=== PATIENT | male | born 1960 ===

== ENCOUNTER 2021-04-12 16:26 | Emergency (ER) | payer SELFPAY ==
[2021-04-12] MEDS ORDERED: FAMOTIDINE 20 MG/2 ML INJ IV ONE (17:33)
[2021-04-12] MEDS ORDERED: KETOROLAC 30 MG/1 ML INJ IV ONE (17:33)
--- NOTE | 2021-04-12 18:03 | Emergency Department Report ---
ED Dizziness HPI - General Chief Complaint: Dizziness Stated Complaint: DIZZINESS Time Seen by Provider: 04/12/21 17:32 Source: patient Mode of arrival: Ambulatory Limitations: No Limitations - History of Present Illness Initial Comments: Patient is a 60-year-old male with a past medical history of a recent diagnosis of colon cancer who is presenting with dizziness. Patient states for the last 2 days he has felt lightheaded with standing. Occasional palpitations as well. Has not noticed any dark-colored stool or stool but he has had anemia in the past secondary to his GI bleed. Patient denies any chest pain or shortness of breath. Patient has some generalized abdominal discomfort which is at its baseline. Patient had a scan done today to see if his cancer has spread. - Related Data Previous Rx's Medication Instructions Recorded Last Taken Type Ferrous Sulfate [Ferrous Sulfate 324 mg PO TID #30 tablet. 04/12/21 Unknown Rx 324 MG] Allergies Allergy/AdvReac Type Severity Reaction Status Date / Time No Known Allergies Allergy Unverified 04/12/21 17:31 ED Review of Systems ROS: Stated complaint: DIZZINESS Other details as noted in HPI Comment: All other systems reviewed and negative ED Past Medical Hx - Medications Home Medications: Home Medications Medication Instructions Recorded Confirmed Last Taken Type Ferrous Sulfate [Ferrous Sulfate 324 mg PO TID #30 tablet. 04/12/21 Unknown Rx 324 MG] ED Physical Exam - General Limitations: No Limitations General appearance: alert, in no apparent distress - Head Head exam: Present: atraumatic, normocephalic - Eye Eye exam: Present: normal appearance, PERRL, EOMI - ENT ENT exam: Present: mucous membranes moist - Neck Neck exam: Present: normal inspection - Respiratory Respiratory exam: Present: normal lung sounds bilaterally. Absent: respiratory distress, wheezes, rales, rhonchi - Cardiovascular Cardiovascular Exam: Present: regular rate, normal rhythm, normal heart sounds. Absent: systolic murmur, diastolic murmur, rubs, gallop - GI/Abdominal GI/Abdominal exam: Present: soft, normal bowel sounds. Absent: distended, tenderness, guarding, rebound - Rectal Rectal exam: Present: deferred - Extremities Exam Extremities exam: Present: normal inspection - Back Exam Back exam: Present: normal inspection - Neurological Exam Neurological exam: Present: alert, oriented X3 - Psychiatric Psychiatric exam: Present: normal affect, normal mood - Skin Skin exam: Present: warm, dry, intact, normal color. Absent: rash ED Course Vital Signs 04/12/21 17:21 Temperature 98.2 F Pulse Rate 79 Respiratory 18 Rate Blood Pressure 132/52 O2 Sat by Pulse 99 Oximetry ED Medical Decision Making - Lab Data Result diagrams: 04/12/21 17:53 04/12/21 17:53 Lab Results 04/12/21 04/12/21 04/12/21 Range/Units 17:53 17:53 17:53 WBC 4.5 (4.5-11.0) K/mm3 RBC 3.83 (3.65-5.03) M/mm3 Hgb 7.8 L (11.8-15.2) gm/dl Hct 26.3 L (35.5-45.6) % MCV 69 L (84-94) fl MCH 21 L (28-32) pg MCHC 30 L (32-34) % RDW 21.6 H (13.2-15.2) % Plt Count 344 (140-440) K/mm3 Lymph % (Auto) 29.7 (13.4-35.0) % [place] % (Auto) 5.5 (0.0-7.3) % Eos % (Auto) 7.2 H (0.0-4.3) % Baso % (Auto) 0.8 (0.0-1.8) % Lymph # (Auto) 1.3 (1.2-5.4) K/mm3 [place] # (Auto) 0.2 (0.0-0.8) K/mm3 Eos # (Auto) 0.3 (0.0-0.4) K/mm3 Baso # (Auto) 0.0 (0.0-0.1) K/mm3 Seg Neutrophils % 56.8 (40.0-70.0) % Seg Neutrophils # 2.5 (1.8-7.7) K/mm3 PT 14.2 (12.2-14.9) Sec. INR 0.99 (0.87-1.13) APTT 29.6 (24.2-36.6) Sec. Sodium 138 (137-145) mmol/L Potassium 3.9 (3.6-5.0) mmol/L Chloride 103.9 (98-107) mmol/L Carbon Dioxide 20 L (22-30) mmol/L Anion Gap 18 mmol/L BUN 12 (9-20) mg/dL Creatinine 0.9 (0.8-1.3) mg/dL Estimated GFR > 60 ml/min BUN/Creatinine Ratio 13 % Glucose 101 H (75-100) mg/dL Calcium 8.5 (8.4-10.2) mg/dL Total Bilirubin 0.20 (0.1-1.2) mg/dL AST 13 (5-40) units/L ALT 12 (7-56) units/L Alkaline Phosphatase 88 (35-129) units/L Total Protein 6.4 (6.3-8.2) g/dL Albumin 3.8 L (3.9-5) g/dL Albumin/Globulin Ratio 1.5 % Blood Type Antibody Screen 04/12/21 Range/Units 17:53 WBC (4.5-11.0) K/mm3 RBC (3.65-5.03) M/mm3 Hgb (11.8-15.2) gm/dl Hct (35.5-45.6) % MCV (84-94) fl MCH (28-32) pg MCHC (32-34) % RDW (13.2-15.2) % Plt Count (140-440) K/mm3 Lymph % (Auto) (13.4-35.0) % [place] % (Auto) (0.0-7.3) % Eos % (Auto) (0.0-4.3) % Baso % (Auto) (0.0-1.8) % Lymph # (Auto) (1.2-5.4) K/mm3 [place] # (Auto) (0.0-0.8) K/mm3 Eos # (Auto) (0.0-0.4) K/mm3 Baso # (Auto) (0.0-0.1) K/mm3 Seg Neutrophils % (40.0-70.0) % Seg Neutrophils # (1.8-7.7) K/mm3 PT (12.2-14.9) Sec. INR (0.87-1.13) APTT (24.2-36.6) Sec. Sodium (137-145) mmol/L Potassium (3.6-5.0) mmol/L Chloride (98-107) mmol/L Carbon Dioxide (22-30) mmol/L Anion Gap mmol/L BUN (9-20) mg/dL Creatinine (0.8-1.3) mg/dL Estimated GFR ml/min BUN/Creatinine Ratio % Glucose (75-100) mg/dL Calcium (8.4-10.2) mg/dL Total Bilirubin (0.1-1.2) mg/dL AST (5-40) units/L ALT (7-56) units/L Alkaline Phosphatase (35-129) units/L Total Protein (6.3-8.2) g/dL Albumin (3.9-5) g/dL Albumin/Globulin Ratio % Blood Type B POSITIVE Antibody Screen Negative - Medical Decision Making Patient is a 60-year-old gentleman who has a history of recent diagnosis of colon cancer. Patient coming in with some mild dizziness. Hemodynamically the patient is stable with normal vital signs. Hemoglobin was 7.8. No melena. We will start the patient on iron the patient been given precautions of when to return back to the emergency department. Patient follow- up with primary care and his surgeon Critical care attestation.: If time is entered above; I have spent that time in minutes in the direct care of this critically ill patient, excluding procedure time. ED Disposition Clinical Impression: Anemia Qualifiers: Anemia type: iron deficiency Iron deficiency anemia type: chronic blood loss Qualified Code(s): D50.0 - Iron deficiency anemia secondary to blood loss (chronic) Colon cancer Qualifiers: Colon location: unspecified part of colon Qualified Code(s): C18.9 - Malignant neoplasm of colon, unspecified Disposition: 01 HOME / SELF CARE / HOMELESS Is pt being admited?: No Does the pt Need Aspirin: No Condition: Stable Instructions: Colorectal Cancer, Preventing Iron Deficiency Anemia, Adult Prescriptions: Ferrous Sulfate [Ferrous Sulfate 324 MG] 324 mg PO TID #30 tablet. Time of Disposition: 19:55 Print Language: YORUBA
[2021-04-12 18:11] LABS: Basophils % (Auto) 0.8 % (0.0-1.8); Eosinophils # (Auto) 0.3 K/mm3 (0.0-0.4); Eosinophils % (Auto) 7.2 % (0.0-4.3); Hematocrit 26.3 % (35.5-45.6); Hemoglobin 7.8 gm/dl (11.8-15.2); Lymphocytes # (Auto) 1.3 K/mm3 (1.2-5.4); Lymphocytes % (Auto) 29.7 % (13.4-35.0); Mean Corpuscular HGB Conc 30 % (32-34); Monocytes # (Auto) 0.2 K/mm3 (0.0-0.8); Monocytes % (Auto) 5.5 % (0.0-7.3); Platelet Count 344 K/mm3 (140-440); Red Blood Count 3.83 M/mm3 (3.65-5.03)
[2021-04-12 18:12] LABS: Mean Corpuscular Volume 69 fl (84-94); Red Cell Distribution Width 21.6 % (13.2-15.2)
[2021-04-12 18:36] LABS: Alanine Aminotransferase 12 units/L (7-56); Albumin 3.8 g/dL (3.9-5); BUN/Creatinine Ratio 13; Blood Urea Nitrogen 12 mg/dL (9-20); Calcium 8.5 mg/dL (8.4-10.2); Hemolysis Index 3
[2021-04-12 18:39] LABS: INR 0.99 (0.87-1.13)
[2021-04-12 18:40] LABS: Partial Thromboplastin Time 29.6 Sec. (24.2-36.6)
[2021-04-12 20:36] VITALS: BP 122/65
== END 2021-04-12 21:10 | disposition home or self-care (01) ==
LOC: ED 16:26
DX: D50.0 Iron deficiency anemia secondary to blood loss (chronic) (principal); C18.9 Malignant neoplasm of colon, unspecified
CPT/HCPCS: 36415; 80053; 85025; 85610; 85730; 86850; 86900; 86901; 96374; 96375; 99283; J1885; J3490

== ENCOUNTER 2021-05-09 09:48 | Emergency (ER) | payer SELFPAY ==
--- NOTE | 2021-05-09 10:58 | Event Note ---
ED Screening Note ED Screening Note: Patient presents for generalized weakness, fatigue, and feeling bad since last week He states he had some blood work performed and then has been feeling bad since then States he also has shortness of breath and palpitations He states his stools have been darker but he is on iron supplement He states occasionally has stomach discomfort He has a new diagnosis of stomach cancer and is seeing Dr. Garcia This initial assessment/diagnostic orders/clinical plan/treatment(s) is/are subject to change based on patients health status, clinical progression and re- assessment by fellow clinical providers in the ED. Further treatment and workup at subsequent clinical providers discretion. Patient/guardian urged not to elope from the ED as their condition may be serious if not clinically assessed and managed. Initial orders include: labs, ekg, xr
--- NOTE | 2021-05-09 11:24 | XRay Report ---
CHEST 2 VIEWS INDICATION: palpitations, sob. COMPARISON: none FINDINGS: Support devices: None. Heart: Within normal limits. Lungs/pleura: No acute air space or interstitial disease. No pneumothorax. Additional findings: None. IMPRESSION: No acute findings. Signer Name: Catrachito Sevilla Jr, MD Signed: 05/09/2021 11:20 AM Workstation Name: [id number]
--- NOTE | 2021-05-09 11:56 | Emergency Department Report ---
ED General Adult HPI - General Chief complaint: GI Bleed Stated complaint: BLACK STOOL,CHEST PAIN,BODY PAIN Time Seen by Provider: 05/09/21 11:41 Source: patient Mode of arrival: Ambulatory Limitations: Language Barrier - History of Present Illness Initial comments: Patient is 60 years old male with a recent diagnosis of stomach cancer according to his daughter. She stated that he was diagnosed with stomach cancer in [place] and he just recently moved here. She stated that he has been complaining of generalized weakness for the last few days. She stated that they follow-up with Dr. Garcia, oncologist and she referred him to [facility] to start his treatment plan. She stated that they are planning to go today however he became weak. He denied any hematemesis or hematochezia. She stated that his stool color is a little bit dark but since this is started when he start taking iron. She stated that there is no change in the stool color recently. Patient was seen here end of March and had a hemoglobin of 7.8 at that time. - Related Data Previous Rx's Medication Instructions Recorded Last Taken Type Ferrous Sulfate [Ferrous Sulfate 324 mg PO TID #30 tablet. 04/12/21 Unknown Rx 324 MG] Allergies Allergy/AdvReac Type Severity Reaction Status Date / Time No Known Allergies Allergy Unverified 04/12/21 17:31 ED Review of Systems ROS: Stated complaint: BLACK STOOL,CHEST PAIN,BODY PAIN Other details as noted in HPI Comment: All other systems reviewed and negative Constitutional: denies: chills, fever Respiratory: denies: cough, shortness of breath, SOB with exertion Cardiovascular: denies: chest pain, palpitations Gastrointestinal: denies: abdominal pain, nausea, vomiting Musculoskeletal: denies: back pain Neurological: weakness. denies: headache, numbness, paresthesias, confusion, abnormal gait ED Past Medical Hx - Past Medical History Previous Medical History?: Yes Additional medical history: stomach cancer, [facility] - Surgical History Past Surgical History?: No - Medications Home Medications: Home Medications Medication Instructions Recorded Confirmed Last Taken Type Ferrous Sulfate [Ferrous Sulfate 324 mg PO TID #30 tablet. 04/12/21 Unknown Rx 324 MG] ED Physical Exam - General Limitations: Language Barrier General appearance: alert, in no apparent distress - Head Head exam: Present: normocephalic - Eye Eye exam: Present: normal appearance - ENT ENT exam: Present: normal exam, normal orophraynx, mucous membranes moist - Neck Neck exam: Present: normal inspection, full ROM. Absent: tenderness, meningismus - Respiratory Respiratory exam: Present: normal lung sounds bilaterally - Cardiovascular Cardiovascular Exam: Present: regular rate, normal rhythm, normal heart sounds - GI/Abdominal GI/Abdominal exam: Present: soft, normal bowel sounds. Absent: distended, tenderness, guarding, rebound, rigid, organomegaly, mass, bruit, pulsatile mass, hernia - Extremities Exam Extremities exam: Present: normal inspection, full ROM, normal capillary refill. Absent: tenderness - Back Exam Back exam: Present: normal inspection, full ROM. Absent: CVA tenderness (R), CVA tenderness (L) - Neurological Exam Neurological exam: Present: alert, oriented X3, CN II-XII intact, normal gait, reflexes normal. Absent: motor sensory deficit - Psychiatric Psychiatric exam: Present: normal mood - Skin Skin exam: Present: warm, intact, normal color ED Course Vital Signs 05/09/21 10:45 Temperature 98.1 F Pulse Rate 87 Respiratory 16 Rate Blood Pressure 114/66 [Left] O2 Sat by Pulse 100 Oximetry ED Medical Decision Making - Lab Data Result diagrams: 05/09/21 11:42 05/09/21 11:42 - Medical Decision Making Patient is 60 years old male with a recent diagnosis of stomach cancer according to his daughter. She stated that he was diagnosed with stomach cancer in [place] and he just recently moved here. She stated that he has been complaining of generalized weakness for the last few days. She stated that they follow-up with Dr. Garcia, oncologist and she referred him to [facility] to start his treatment plan. She stated that they are planning to go today however he became weak. He denied any hematemesis or hematochezia. She stated that his stool color is a little bit dark but since this is started when he start taking iron. She stated that there is no change in the stool color recently. Patient was seen here end of March and had a hemoglobin of 7.8 at that time. Patient remained stable in the ER with stable vital sign. Hemoglobin is 6.9 a drop from 7.91-month ago. Patient does not have any active bleeding now. Patient received 1 unit of PRBC. Patient advised to follow-up with Dr. Garcia and [facility] as scheduled. Patient advised to return to the ER if he develop any new symptoms. Critical care attestation.: If time is entered above; I have spent that time in minutes in the direct care of this critically ill patient, excluding procedure time. ED Disposition Clinical Impression: Acute anemia, History of stomach cancer Disposition: HOME / SELF CARE / HOMELESS Is pt being admited?: No Condition: Stable Instructions: Blood Transfusion, Adult, Care After, [id number] Referrals: PRIMARY CARE, [Primary Care Provider] - 3-5 Days Forms: Accompanied Note
[2021-05-09 12:08] LABS: Basophils % (Auto) 0.7 % (0.0-1.8); Eosinophils # (Auto) 0.4 K/mm3 (0.0-0.4); Eosinophils % (Auto) 7.8 % (0.0-4.3); Hematocrit 22.7 % (35.5-45.6); Hemoglobin 6.9 gm/dl (11.8-15.2); Lymphocytes # (Auto) 1.3 K/mm3 (1.2-5.4); Lymphocytes % (Auto) 23.6 % (13.4-35.0); Mean Corpuscular HGB Conc 30 % (32-34); Mean Corpuscular Volume 73 fl (84-94); Monocytes # (Auto) 0.4 K/mm3 (0.0-0.8); Monocytes % (Auto) 8.2 % (0.0-7.3); Platelet Count 325 K/mm3 (140-440)
[2021-05-09 12:09] LABS: Red Cell Distribution Width 23.9 % (13.2-15.2)
[2021-05-09] MEDS ORDERED: SODIUM CHLORIDE 0.9% 500 ML 500 ML IV ONE (12:14)
[2021-05-09 12:28] LABS: Alanine Aminotransferase 22 units/L (7-56); Albumin 3.4 g/dL (3.9-5); Blood Urea Nitrogen 16 mg/dL (9-20); Hemolysis Index 0
[2021-05-09 12:31] LABS: BUN/Creatinine Ratio 27
[2021-05-09 12:38] LABS: INR 0.95 (0.87-1.13); Partial Thromboplastin Time 28.6 Sec. (24.2-36.6)
[2021-05-09] MEDS ORDERED: SODIUM CHLORIDE 0.9% 500 ML 500 ML ONE (16:32)
[2021-05-09] MEDS ORDERED: SODIUM CHLORIDE 0.9% 1000 ML 1,000 ML ONE (16:47)
[2021-05-09 19:14] VITALS: BP 108/60
--- NOTE | 2021-05-10 08:58 | Electrocardiograph Report ---
[facility] Test Date: 2021-05-09 Test Time: 11:23:34 Pat Name: JOYCE KIM Department: Room: Gender: M Carpenter: JACQUELYN : 1960 Requested By: HEMANT TABOR Order Number: [id number] Reading MD: Arnoldo Hunt Measurements Intervals [place] Rate: 76 P: 15 [place]: 181 QRS: 60 QRSD: 91 T: 39 QT: 363 QTc: 410 Interpretive Statements Sinus rhythm No previous ECG available for comparison Electronically Signed On 05-10-2021 8:57:43 EST by Arnoldo Hunt
== END 2021-05-09 19:19 | disposition home or self-care (01) ==
LOC: ED 09:48
DX: D64.9 Anemia, unspecified (principal); Z85.028 Personal history of other malignant neoplasm of stomach
CPT/HCPCS: 36415; 36430; 71046; 80053; 84484; 85025; 85610; 85730; 86850; 86900; 86901; 86920; 93005; 93010; 99284; J7030; J7040; P9016; Q0162